=== PATIENT | female | born 1955 | race Two or more races ===

== ENCOUNTER 2019-04-21 09:44 | Outpatient (CLI) | payer OTHER | END 2019-04-21 09:55 | disposition home or self-care (01) | LOC: TOM 09:44 | DX: N39.0 Urinary tract infection, site not specified (principal); Q62.11 Congenital occlusion of ureteropelvic junction ==

== ENCOUNTER 2019-12-09 09:28 | Outpatient (CLI) | payer OTHER | END 2019-12-09 09:41 | disposition home or self-care (01) | LOC: RX STUDY 09:28 | PROVIDERS: ATTEND Urology | DX: N81.11 Cystocele, midline (principal); N30.00 Acute cystitis without hematuria ==

== ENCOUNTER 2020-01-25 14:04 | Outpatient (CLI) | payer OTHER | END 2020-01-25 14:22 | disposition home or self-care (01) | LOC: MAMO-SONO 14:04 | PROVIDERS: ATTEND Obstetrics & Gynecology | DX: Z12.31 Encounter for screening mammogram for malignant neoplasm of breast (principal); N64.59 Other signs and symptoms in breast ==

== ENCOUNTER 2020-02-02 09:39 | Outpatient (CLI) | payer OTHER | END 2020-02-02 09:47 | disposition home or self-care (01) | LOC: NUCLEAR 09:39 | PROVIDERS: ATTEND Obstetrics & Gynecology | DX: M81.0 Age-related osteoporosis without current pathological fracture (principal) ==

== ENCOUNTER 2020-05-17 12:02 | Emergency (ER) | payer OTHER ==
[~2020-05-17] VITALS: Ht 172.7 cm; Wt 117.5 kg
[2020-05-17] MEDS ORDERED: DIOVAN HCT 3201 EAC1 (12:53)
[2020-05-17] MEDS ORDERED: TOPROL XL100 M1 (12:54)
[2020-05-17] MEDS ORDERED: CARDURA XL4 MG (12:54)
[2020-05-17] MEDS ORDERED: SYNTHROID112 MCG (12:54)
== END 2020-05-17 16:28 | disposition home or self-care (01) ==
LOC: ER 12:02
DX: N20.0 Calculus of kidney (principal); N39.0 Urinary tract infection, site not specified

== ENCOUNTER 2020-05-31 08:15 | Inpatient (IN) | payer OTHER ==
[~2020-05-31] VITALS: Ht 172.7 cm; Wt 117.0 kg
[~2020-05-31 08:15] MED LIST: CARDURA XL4 MG; DIOVAN HCT 3201 EAC1; SYNTHROID112 MCG; TOPROL XL100 M1
[2020-06-08] MEDS ORDERED: METFORMIN HCL500 M4 (08:48)
[2020-06-08] MEDS ORDERED: NORVASC2.5 MG (08:49)
== END 2020-06-11 12:08 | disposition home or self-care (01) | DRG 661 ==
LOC: SURH 06-08 05:30 → O/R 06-08 05:30 → SURH 06-08 07:00
PROVIDERS: ADMIT Urology; ATTEND Urology
PROC: 0TB64ZZ Excision of Right Ureter, Percutaneous Endoscopic Approach (ICD-10-PCS; 2020-06-08)
PROC: 0TB04ZZ Excision of Right Kidney, Percutaneous Endoscopic Approach (ICD-10-PCS; principal; 2020-06-08 07:00)
DX: N11.1 Chronic obstructive pyelonephritis (principal); N13.5 Crossing vessel and stricture of ureter without hydronephrosis; N26.1 Atrophy of kidney (terminal); R05 Cough